=== PATIENT | male | born 1945 | race American Indian/Alaskan Native ===

== ENCOUNTER 2016-12-05 18:27 | Emergency (ER) | payer MEDICARE, OTHER ==
[2016-12-05 19:02] VITALS: BP 129/68
--- NOTE | 2016-12-05 19:20 | EDM.PDOC ---
ED HPI GENERAL MEDICAL PROBLEM - General Chief Complaint: ENT Problem Stated Complaint: PIECE OF HEARING AID STUCK IN EAR Time Seen by Provider: 12/05/16 19:15 Source of Information: Reports: Patient History Limitations: Reports: No Limitations - History of Present Illness INITIAL COMMENTS - FREE TEXT/NARRATIVE: Zac is a 71-year-old male who presents to the emergency room today after he ended up getting a piece of his hearing aid stuck in his left ear. Patient denies any other complaints. Onset: Today - Related Data Allergies Allergy/AdvReac Type Severity Reaction Status Date / Time Sulfa (Sulfonamide Allergy Tremors Verified 12/05/16 18:55 Antibiotics) Home Meds: Home Meds Aspirin 12/05/16 [History] Insulin Glarg,Human.Rec.Analog [Lantus Solostar] 12/05/16 [History] Lisinopril 12/05/16 [History] Simvastatin [Zocor] 12/05/16 [History] Vit B12/Fa/Pyridoxine HCl/AA15 [Glycotrol] 12/05/16 [History] metFORMIN [Glucophage] 12/05/16 [History] Past Medical History HEENT History: Reports: Hard of Hearing Endocrine/Metabolic History: Reports: Diabetes, Type II - Past Surgical History HEENT Surgical History: Reports: Eye Surgery Social & Family History - Tobacco Use Smoking Status *Q: Never Smoker ED ROS ENT - Review of Systems Review Of Systems: ROS reveals no pertinent complaints other than HPI. ED EXAM, ENT - Physical Exam Exam: See Below Exam Limited By: No Limitations General Appearance: Alert, WD/WN, No Apparent Distress Ears: Normal External Exam, Normal Canal, Normal TMs, Other (Part of hearing aid noted in left canal) Nose: Normal Inspection Mouth/Throat: Normal Inspection Respiratory/Chest: No Respiratory Distress Cardiovascular: Tachycardia Neurological: Alert, Oriented, CN II-XII Intact Psychiatric: Normal Affect, Normal Mood Skin: Warm, Dry, Intact Lymphatic: No Adenopathy Course - Vital Signs Last Recorded V/S: Last Vital Signs Temp 35.9 C 12/05/16 19:01 Pulse 105 H 12/05/16 19:01 Resp 14 12/05/16 19:01 BP 129/68 12/05/16 19:01 Pulse Ox 96 12/05/16 19:01 Zac is a 71-year-old male who presents to the emergency room after having part of his hearing aid stuck in his left ear, this was removed without difficulty, ear on exam has no evidence of trauma, TM is intact. Patient was discharged in stable condition. Departure - Departure Time of Disposition: 19:30 Disposition: Home, Self-Care 01 Condition: Good Clinical Impression: Foreign body in ear Qualifiers: Encounter type: initial encounter Laterality: left Qualified Code(s): T16.2XXA - Foreign body in left ear, initial encounter - Discharge Information Instructions: Ear Foreign Body, [id number] Referrals: PCP,None [Primary Care Provider] - Forms: ED Department Discharge
== END 2016-12-05 19:27 | disposition home or self-care (01) ==
LOC: JP.ED 18:27
DX: T16.2XXA Foreign body in left ear, initial encounter (principal); E11.9 Type 2 diabetes mellitus without complications; Z79.4 Long term (current) use of insulin; Z79.84 Long term (current) use of oral hypoglycemic drugs; Z98.890 Other specified postprocedural states; Z79.82 Long term (current) use of aspirin; Z79.899 Other long term (current) drug therapy; Z88.2 Allergy status to sulfonamides
CPT/HCPCS: 69200; 99283; 99283-25